=== PATIENT | female | born 1990 | race Two or more races ===

== ENCOUNTER → 2021-04-20 13:13 | Outpatient (CLI) | payer OTHER | END | disposition home or self-care (01) | LOC: LAB 13:13 | PROVIDERS: ATTEND Internal Medicine | DX: E03.8 Other specified hypothyroidism (principal); I10 Essential (primary) hypertension ==

== ENCOUNTER 2021-08-10 09:22 | Outpatient (CLI) | payer OTHER | END 2021-08-10 09:23 | disposition home or self-care (01) | LOC: LAB 09:22 | PROVIDERS: ATTEND Student in an Organized Health Care Education/Training Program | DX: R73.03 Prediabetes (principal); E16.2 Hypoglycemia, unspecified; I10 Essential (primary) hypertension; E03.8 Other specified hypothyroidism; C73 Malignant neoplasm of thyroid gland ==

== ENCOUNTER 2021-08-15 06:47 | Outpatient (CLI) | payer OTHER | END 2021-08-15 06:54 | disposition home or self-care (01) | LOC: LAB 06:47 | DX: Z32.02 Encounter for pregnancy test, result negative (principal) ==

== ENCOUNTER 2021-11-07 09:04 | Outpatient (CLI) | payer OTHER | END 2021-11-07 09:07 | disposition home or self-care (01) | LOC: LAB 09:04 | PROVIDERS: ATTEND Internal Medicine Endocrinology, Diabetes & Metabolism | DX: E05.90 Thyrotoxicosis, unspecified without thyrotoxic crisis or storm (principal) ==

== ENCOUNTER 2021-11-13 10:08 | Outpatient (CLI) | payer OTHER | END 2021-11-13 10:11 | disposition home or self-care (01) | LOC: SONOGRAMA 10:08 | PROVIDERS: ATTEND Internal Medicine Sports Medicine | DX: E04.1 Nontoxic single thyroid nodule (principal); E04.9 Nontoxic goiter, unspecified ==

== ENCOUNTER 2021-11-20 12:28 | Outpatient (CLI) | payer OTHER | END 2021-11-20 12:30 | disposition home or self-care (01) | LOC: LAB 12:28 | PROVIDERS: ATTEND Internal Medicine Hematology & Oncology | DX: Z20.828 Contact with and (suspected) exposure to other viral communicable diseases (principal) ==

== ENCOUNTER 2021-12-05 13:33 | Outpatient (CLI) | payer OTHER | END 2021-12-05 13:34 | disposition home or self-care (01) | LOC: NUCLEAR 13:33 | PROVIDERS: ATTEND Internal Medicine Sports Medicine | DX: E05.90 Thyrotoxicosis, unspecified without thyrotoxic crisis or storm (principal) | CPT/HCPCS: 79005; A9517 ==

== ENCOUNTER 2022-01-30 08:57 | Outpatient (CLI) | payer OTHER | END 2022-01-30 09:04 | disposition home or self-care (01) | LOC: LAB 08:57 | DX: E05.90 Thyrotoxicosis, unspecified without thyrotoxic crisis or storm (principal); Z32.00 Encounter for pregnancy test, result unknown ==

== ENCOUNTER 2022-03-15 09:35 | Outpatient (CLI) | payer OTHER | END 2022-03-15 09:36 | disposition home or self-care (01) | LOC: LAB 09:35 | PROVIDERS: ATTEND Internal Medicine | DX: E03.9 Hypothyroidism, unspecified (principal); E11.9 Type 2 diabetes mellitus without complications ==

== ENCOUNTER 2022-08-09 10:49 | Outpatient (CLI) | payer OTHER | END 2022-08-09 10:50 | disposition home or self-care (01) | LOC: LAB 10:49 | PROVIDERS: ATTEND Internal Medicine Sports Medicine | DX: E03.8 Other specified hypothyroidism (principal); E04.1 Nontoxic single thyroid nodule; E04.9 Nontoxic goiter, unspecified; E89.0 Postprocedural hypothyroidism ==

== ENCOUNTER 2023-04-13 10:49 | Outpatient (CLI) | payer OTHER ==
[2023-04-13 12:41] LABS: HEMATOCRIT 39.9 % (36.0-45.00); HEMOGLOBIN 13.5 g/dL (12.0-15.00); MEAN CELL VOLUME 80.6 fL (80.00-100.00); MEAN CORPUSCULAR HEMOGLOBIN 27.3 pg (27.00-32.0); MEAN CORPUSCULAR HGB CONC 33.8 g/dl (32.0-36.0); PLATELET COUNT 269 K/uL (150-450); RED BLOOD COUNT 4.94 M/uL (4.00-6.00); RED CELL DISTRIBUTION WIDTH 14.4 % (11.5-14.5)
[2023-04-13 12:49] LABS: ALBUMIN 3.6 gm/dL (3.4-5.0); BILIRUBIN TOTAL 0.41 mg/dL (0.3-1.2); CALCIUM 8.8 mg/dL (8.5-10.1); CHOL HDL RATIO 3.3 (0-5.0); CREATININE SERUM 0.8 mg/dL (0.55-1.02); GFR 82.61; GLOBULINA 4.2 G/DL (2.4-3.5); POTASSIUM 3.73 mEq/L (3.5-5.1); T4 FREE 1.09 NG/ML (0.76-1.46); TOTAL PROTEIN 7.8 gm/dL (6.4-8.2); TSH 0.78 uIU/mL (0.358-3.74)
[2023-04-13 13:21] LABS: PH,URINE 6.5 (5.0-8.0); URINE APPEARANCE Clear; URINE BILIRRUBIN Negative (NEGATIVE); URINE BLOOD Small; URINE COLOR Yellow; URINE GLUCOSE Negative (NEGATIVE); URINE LEUKOCYTE Small; URINE NITRATE Negative; URINE PROTEIN Trace (NEGATIVE)
[2023-04-13 13:25] LABS: URINE BACTERIA 647.5 uL (0.0-1933); URINE EPITHELIAL CELLS 24.5 uL (0.0-38.8); URINE RBC 43.8 uL (0.0-20.8); URINE WBC 100.4 uL (0.0-23.2)
== END 2023-04-13 10:50 | disposition home or self-care (01) ==
LOC: LAB 10:49
PROVIDERS: ATTEND Internal Medicine Sports Medicine
DX: D64.9 Anemia, unspecified (principal); E11.9 Type 2 diabetes mellitus without complications; E78.2 Mixed hyperlipidemia; I10 Essential (primary) hypertension; E03.8 Other specified hypothyroidism

== ENCOUNTER 2023-09-09 10:00 | Outpatient (CLI) | payer OTHER ==
[2023-09-09 11:38] LABS: URINE APPEARANCE Clear; URINE BILIRRUBIN Negative (NEGATIVE); URINE BLOOD Moderate; URINE COLOR Yellow; URINE GLUCOSE Negative (NEGATIVE); URINE LEUKOCYTE Trace; URINE NITRATE Negative; URINE PROTEIN Negative (NEGATIVE)
[2023-09-09 11:40] LABS: HEMATOCRIT 38.2 % (36.0-45.00); HEMOGLOBIN 12.8 g/dL (12.0-15.00); MEAN CELL VOLUME 80.8 fL (80.00-100.00); MEAN CORPUSCULAR HGB CONC 33.4 g/dl (32.0-36.0); PLATELET COUNT 285 K/uL (150-450); RED BLOOD COUNT 4.73 M/uL (4.00-6.00); RED CELL DISTRIBUTION WIDTH 14.2 % (11.5-14.5)
[2023-09-09 11:42] LABS: URINE BACTERIA 83.1 uL (0.0-1933); URINE EPITHELIAL CELLS 34.3 uL (0.0-38.8); URINE RBC 136.8 uL (0.0-20.8); URINE WBC 55.3 uL (0.0-23.2)
[2023-09-09 12:37] LABS: ALBUMIN 3.6 gm/dL (3.4-5.0); BILIRUBIN TOTAL 0.34 mg/dL (0.3-1.2); CALCIUM 8.8 mg/dL (8.5-10.1); CHOL HDL RATIO 3.3 (0-5.0); CREATININE SERUM 0.75 mg/dL (0.55-1.02); GFR 88.45; GLOBULINA 4.3 G/DL (2.4-3.5); POTASSIUM 3.76 mEq/L (3.5-5.1); T4 FREE 1.44 NG/ML (0.76-1.46); TOTAL PROTEIN 7.9 gm/dL (6.4-8.2); TSH 2.17 uIU/mL (0.358-3.74)
== END 2023-09-09 10:01 | disposition home or self-care (01) ==
LOC: LAB 10:00
PROVIDERS: ATTEND Internal Medicine Sports Medicine
DX: D64.9 Anemia, unspecified (principal); E11.9 Type 2 diabetes mellitus without complications; E78.2 Mixed hyperlipidemia; I10 Essential (primary) hypertension; E03.8 Other specified hypothyroidism

== ENCOUNTER 2024-02-26 11:09 | Outpatient (CLI) | payer OTHER ==
[2024-02-26 12:12] LABS: HEMATOCRIT 38.4 % (36.0-45.00); HEMOGLOBIN 12.6 g/dL (12.0-15.00); MEAN CELL VOLUME 81.7 fL (80.00-100.00); MEAN CORPUSCULAR HEMOGLOBIN 26.8 pg (27.00-32.0); MEAN CORPUSCULAR HGB CONC 32.7 g/dl (32.0-36.0); PLATELET COUNT 271 K/uL (150-450); RED CELL DISTRIBUTION WIDTH 14.1 % (11.5-14.5)
[2024-02-26 12:13] LABS: PH,URINE 6.5 (5.0-8.0); URINE APPEARANCE Cloudy; URINE BILIRRUBIN Negative (NEGATIVE); URINE BLOOD Large; URINE COLOR Yellow; URINE GLUCOSE Negative (NEGATIVE); URINE KETONE Negative (NEGATIVE); URINE LEUKOCYTE Moderate; URINE NITRATE Negative; URINE PROTEIN Negative (NEGATIVE); URINE UROBILINOGEN 0.2 E.U./dl
[2024-02-26 12:14] LABS: URINE BACTERIA 1949.1 uL (0.0-1933); URINE EPITHELIAL CELLS 27.2 uL (0.0-38.8); URINE RBC 55.4 uL (0.0-20.8); URINE WBC 156.1 uL (0.0-23.2)
[2024-02-26 12:50] LABS: URINE CAST 0.61 uL (0.0-1.40)
[2024-02-26 12:55] LABS: ALBUMIN 3.6 gm/dL (3.4-5.0); BILIRUBIN TOTAL 0.32 mg/dL (0.3-1.2); CALCIUM 9.1 mg/dL (8.5-10.1); CHOL HDL RATIO 3.5 (0-5.0); CREATININE SERUM 0.72 mg/dL (0.55-1.02); GFR 92.72; GLOBULINA 4.5 G/DL (2.4-3.5); POTASSIUM 4.01 mEq/L (3.5-5.1); TOTAL PROTEIN 8.1 gm/dL (6.4-8.2)
[2024-02-28 07:10] LABS: HSV I IGG TYPE SPECIFIC < 0.91 index (0.00-0.90); hav igm Negative (Negative); hcv Non Reactive (Non Reactive); hep b c Negative (Negative); hep b s ag Negative (Negative)
[2024-02-28 09:08] LABS: FOLLICLE STIMULATING HORMONE 4.2 mIU/mL (.); LEUTEINIZING HORMONE 10.8 mIU/mL (.)
[2024-02-28 21:05] LABS: chla t Negative (Negative); neiss Negative (Negative)
== END 2024-02-26 11:15 | disposition home or self-care (01) ==
LOC: LAB 11:09
PROVIDERS: ATTEND Obstetrics & Gynecology
DX: N73.3 Female acute pelvic peritonitis (principal); E55.9 Vitamin D deficiency, unspecified; N39.0 Urinary tract infection, site not specified; E78.9 Disorder of lipoprotein metabolism, unspecified; N73.9 Female pelvic inflammatory disease, unspecified; E11.9 Type 2 diabetes mellitus without complications; N91.2 Amenorrhea, unspecified; D64.9 Anemia, unspecified; K75.9 Inflammatory liver disease, unspecified; A60.04 Herpesviral vulvovaginitis; A60.00 Herpesviral infection of urogenital system, unspecified; E34.9 Endocrine disorder, unspecified; E78.5 Hyperlipidemia, unspecified

== ENCOUNTER 2024-03-24 09:36 | Outpatient (CLI) | payer OTHER ==
[2024-03-24 11:30] LABS: T4 FREE 1.25 NG/ML (0.76-1.46); TSH 1.11 uIU/mL (0.358-3.74)
== END 2024-03-24 09:39 | disposition home or self-care (01) ==
LOC: LAB 09:36
PROVIDERS: ATTEND Internal Medicine Sports Medicine
DX: E03.8 Other specified hypothyroidism (principal); E04.1 Nontoxic single thyroid nodule; E04.9 Nontoxic goiter, unspecified

== ENCOUNTER 2024-06-17 08:39 | Emergency (ER) | payer OTHER ==
[~2024-06-17] VITALS: Ht 154.9 cm; Wt 81.6 kg
[2024-06-17] MEDS ORDERED: SYNTHROID112 MCG (08:52)
[2024-06-17] MEDS ORDERED: METHYLPREDNISOLONE SOD SUCC 125 MG VIAL IV STA (09:30)
[2024-06-17] MEDS ORDERED: METHYLPREDNISOLONE SOD SUCC 125 MG VIAL ONE (09:45)
[2024-06-17] MEDS ORDERED: ALBUTEROL SULFATE 3 ML/2.5 MG AMPUL.NEB IH SCH (09:45)
[2024-06-17 10:28] LABS: HEMATOCRIT 38.2 % (36.0-45.00); HEMOGLOBIN 12.9 g/dL (12.0-15.00); MEAN CELL VOLUME 80.3 fL (80.00-100.00); MEAN CORPUSCULAR HEMOGLOBIN 27.1 pg (27.00-32.0); MEAN CORPUSCULAR HGB CONC 33.7 g/dl (32.0-36.0); PLATELET COUNT 242 K/uL (150-450); RED BLOOD COUNT 4.75 M/uL (4.00-6.00)
[2024-06-17] MEDS ORDERED: ALBUTEROL SULFATE 3 ML/2.5 MG AMPUL.NEB IH ONE (10:48)
== END 2024-06-17 11:32 | disposition home or self-care (01) ==
LOC: ER 08:41
PROVIDERS: Emergency Medicine Pediatric Emergency Medicine
DX: B34.9 Viral infection, unspecified (principal); J00 Acute nasopharyngitis [common cold]; Z20.822 Contact with and (suspected) exposure to COVID-19; Z88.6 Allergy status to analgesic agent; Z91.013 Allergy to seafood

== ENCOUNTER → 2024-10-29 09:22 | Outpatient (CLI) | payer OTHER ==
[~2024-10-29 09:22] MED LIST: SYNTHROID112 MCG
[2024-10-29 10:33] LABS: BASO % 0.6 % (0.1-1.2); EOS # 0.18 (0.04-0.54); HEMATOCRIT 39.8 % (34.1-44.9); LYMPH # 2.36 (1.18-3.74); LYMPH % 26.2 % (19.3-53.1); MEAN CORPUSCULAR HEMOGLOBIN 26.5 pg (25.6-32.2); MONO # 0.64 (0.24-0.82); MONO % 7.1 % (4.7-12.5); NEUT # 5.76 (1.56-6.13); NEUT % 63.8 % (34.0-71.1); PLATELET COUNT 303 K/uL (163-369); RED CELL DISTRIBUTION WIDTH 13.8 % (11.6-14.4)
[2024-10-29 10:49] LABS: PH,URINE 6.5 (5.0-8.0); URINE APPEARANCE Clear; URINE BILIRRUBIN Negative (NEGATIVE); URINE BLOOD Small; URINE COLOR Yellow; URINE GLUCOSE Negative (NEGATIVE); URINE KETONE Negative (NEGATIVE); URINE LEUKOCYTE Negative; URINE NITRATE Negative; URINE PROTEIN Negative (NEGATIVE); URINE UROBILINOGEN 0.2 E.U./dl
[2024-10-29 10:53] LABS: URINE BACTERIA 228.8 uL (0.0-1933); URINE EPITHELIAL CELLS 17.5 uL (0.0-38.8); URINE RBC 30.9 uL (0.0-20.8); URINE WBC 9.8 uL (0.0-23.2)
[2024-10-29 11:32] LABS: URINE CAST 0.14 uL (0.0-1.40)
[2024-10-29 12:03] LABS: ALBUMIN 3.7 gm/dL (3.4-5.0); BILIRUBIN TOTAL 0.37 mg/dL (0.3-1.2); CALCIUM 9.1 mg/dL (8.5-10.1); CHOL HDL RATIO 3.4 (0-5.0); CREATININE SERUM 0.71 mg/dL (0.55-1.02); GFR 93.68; GLOBULINA 4.1 G/DL (2.4-3.5); POTASSIUM 3.97 mEq/L (3.5-5.1); T4 FREE 1.02 NG/ML (0.76-1.46); TOTAL PROTEIN 7.8 gm/dL (6.4-8.2); TSH 1.02 uIU/mL (0.358-3.74)
== END | disposition home or self-care (01) ==
LOC: LAB 09:22
PROVIDERS: ATTEND Internal Medicine Sports Medicine
DX: D64.9 Anemia, unspecified (principal); E11.9 Type 2 diabetes mellitus without complications; E78.2 Mixed hyperlipidemia; I10 Essential (primary) hypertension; E03.8 Other specified hypothyroidism; E55.9 Vitamin D deficiency, unspecified

== ENCOUNTER 2025-01-22 09:51 | Outpatient (CLI) | payer OTHER | END 2025-01-22 09:54 | disposition home or self-care (01) | LOC: SONOGRAMA 09:51 | DX: R30.0 Dysuria (principal) ==